=== PATIENT | female | born 1985 | race Caucasian/White ===

== ENCOUNTER 2019-10-19 02:59 | Emergency (ER) | payer BC ==
[~2019-10-19 02:59] MED LIST: DOXY25TA29 PO; HYDR250V8 IM; PNV PO
== END 2019-10-19 03:23 | disposition home or self-care (01) ==
LOC: EDH 02:59
DX: H66.92 Otitis media, unspecified, left ear (principal); Z88.0 Allergy status to penicillin; Z90.49 Acquired absence of other specified parts of digestive tract
CPT/HCPCS: 99281